=== PATIENT | male | born 1935 | race Caucasian/White ===

== ENCOUNTER 2016-08-30 21:30 | Inpatient (IN) | payer MEDICARE, OTHER ==
--- NOTE | ~2016-08-30 | DS ---
Discharge Summary [address] [place]. [address] NAME: RANJITH KING : 35 STATUS : DIS IN PAT#: [id number] AGE: 81 ADM/REG DATE : 08/30/16 MR#: [id number] REPORT SERV DATE: 09/07/16 DICTATED BY: DATE: REPORT STATUS : Draft TRANSCRIBED BY: MODL DATE: 09/06/16 ADMISSION DATE: 08/30/2016 DISCHARGE DATE: 09/06/2016 DISCHARGE DIAGNOSES: 1. 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 2. Atrial fibrillation. 3. Left femoral vein clot. 4. Chronic obstructive pulmonary disease. 5. Questionable pneumonia. DISCHARGE MEDICATIONS: Include Eliquis 10 mg p.o. b.i.d. until 09/09/2016 and Eliquis 5 mg p.o. b.i.d., amiodarone 400 mg p.o. b.i.d. until 09/08/2016, then amiodarone 200 mg p.o. b.i.d., Colace 100 mg p.o. b.i.d., Protonix 40 mg p.o. daily, Florastor one capsule p.o. b.i.d., Brovana 15 mcg inhalation b.i.d., budesonide inhalation b.i.d., DuoNeb q.4 hours while awake, Tylenol 650 mg p.o. q.4 hours p.r.n. for temperature greater than 101, Dulcolax suppository 10 mg p.o. daily p.r.n. constipation, Plains 10/325 mg tablet one tablet q.4 hours p.r.n. for pain, Zofran 4-8 mg IV q.4 hours p.r.n. for nausea, MiraLAX one packet p.o. daily p.r.n. for constipation, Tenormin 25 mg p.o. at bedtime, DuoNeb inhalation q.4 hours p.r.n. for shortness of breath or wheezing. CONSULTING PHYSICIAN: Include Dr. Merari Valle with Oncology. For full H and P, please refer to Dr. John Mclean's dictation on 08/30/2016. Please also see interim discharge summaries on 09/01/[address] Jerad Lyon as well as 09/03/[address] Joseluis Goodrich. HOSPITAL COURSE/PROBLEM LIST: 1. 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 The patient will be discharged today to the [facility] under the care of [facility] for symptom control. 2. Atrial fibrillation. The patient is on amiodarone 400 mg p.o. b.i.d., will be switched to 200 mg p.o. b.i.d. as mentioned above if his heart rate is 90s to 110s. I will add the patient's Tenormin back from his home regimen. This was held due to hypotension early in his hospital admission; however, this is resolved now. It is unclear whether this was due to infection versus medication-induced hypotension. The patient received morphine in the emergency department, which caused some hypotension. Now, his blood pressure is 120s to 140s systolic and he has not had a hypotensive episode since admission. 3. Left femoral vein clot. This was diagnosed on ultrasound on 08/31/2016, and the patient was placed on Eliquis and we will continue these post discharge. 4. COPD. I will continue the patient's long-acting beta agonists as well as DuoNeb and budesonide, but he is currently not short of breath with an O2 saturation of 98% on 2 L nasal cannula. I discontinued the O2. 5. Questionable pneumonia. The patient received a six-day course of IV Zosyn due to an elevated procalcitonin level and a possible vague infiltrate in the left base on a Discharge Summary [address] [address] NAME: RANJITH KING : 35 STATUS : DIS IN PAT#: [id number] AGE: 81 ADM/REG DATE : 08/30/16 MR#: [id number] REPORT SERV DATE: 09/07/16 DICTATED BY: DATE: REPORT STATUS : Draft TRANSCRIBED BY: MODWen DATE: 09/06/16 chest x-ray. I discontinued the Zosyn yesterday. The patient has not developed fevers, worsening shortness of breath, or any other symptoms of infection. 6. Anemia. The patient's last hemoglobin and hematocrit were 7.9 and 24.1, stable. The patient is DNR and again is being discharged to [facility] under [facility]. This discharge took greater than 30 minutes due to the patient education and medication reconciliation. DICTATED BY: KIANNA Mcdowell/KAMAR Smooth Ye NP / [id number] CC: MD BELKYS Reyes [facility].
--- NOTE | ~2016-08-30 | HP ---
History And Physical [address] [place]. [address] NAME: RANJITH KING : 35 STATUS : ADM IN [facility]#: [id number] AGE: 81 ADM/REG DATE : 08/30/16 MR#: [id number] REPORT SERV DATE: 08/31/16 DICTATED BY: MEKA MCLEAN DATE: 08/30/16 REPORT STATUS : Draft TRANSCRIBED BY: MODL DATE: 08/30/16 DATE OF ADMISSION: 08/30/2016 TIME: 2231 hours, referred from [place]. HISTORY OF PRESENT ILLNESS: The patient is an 81-year-old white male who for the past year has been undergoing treatment for what the family tells me small-cell carcinoma. He has had cranial radiation and chemotherapy. He started new form of chemotherapy this past week or so. Today, he began to have a cough and has felt some pain, sharp in his left lower rib cage. He went to the emergency room because of this pain and in the process of working it up, they did a CAT scan, which revealed a known metastasis. The patient was given morphine in the emergency room in [place]. The told me he was given three doses and became hypotensive and bradycardic. According to ER physician whom I talked with, he gave him some fluids, blood pressure gradually came up. The patient remains awake and responsive. He did start him on antibiotics, Zosyn and Rocephin. Unsure if blood cultures were done. CT scan was done, which revealed the mass in the abdomen. According to the family, he has had cranial radiation as of last year and the last rounds of chemotherapy. He has gotten quite debilitated. ALLERGIES: NO KNOWN ALLERGIES. HOME MEDICATIONS: Include lisinopril 5 mg 1 tablet twice a day, Lasix 40 mg one half tablet daily, atenolol 50 one half tablet daily, simvastatin 80 mg one half at night, Protonix 40 mg tablet daily, albuterol in the nebulizer every 4 hours. He uses hydrocodone at home occasionally for pain, mainly Tylenol. REVIEW OF SYSTEMS: As noted above. Has had a previous stroke and has had an AL requiring stents in the past. He is also status post cholecystectomy. Has had polyps removed and gallbladder removed. He sees Dr. Whitney Garcia, an oncologist, in [place]. Also has COPD and some obstructive sleep apnea. PHYSICAL EXAMINATION: VITAL SIGNS: Currently, blood pressure 109/70, pulse 65, afebrile. GENERAL: Awake, alert, and responsive, slight slurred speech. HEENT: Head is normocephalic. Sclerae and conjunctivae are clear. NECK: Supple. Good upstroke. No bruits. CHEST: Decreased breath sounds. The ribs are tender in the left lower side. ABDOMEN: Slightly distended, non-tympanic, decreased bowel sounds. EXTREMITIES: No clubbing, cyanosis, or edema. Pulses are palpable. NEUROLOGIC: Grossly intact. LABORATORY DATA: Reports from the emergency room laboratory show a lactic acid of 4.8 and their normals are 1.0 to 1.77, troponin 0, 0, 0, BNP 307, coagulation D-Dimer 3920, normal 0 to 400; urine color pending, urine appearance pending, UA is pending. Arterial blood gas showed pH of 7.322, pCO2 of 73.9, pCO2 is 31.9, bicarbonate 22. Sodium 136, potassium 4.4, History And Physical [address] [address] NAME: RANJITH KING : 35 STATUS : ADM IN [facility]#: [id number] AGE: 81 ADM/REG DATE : 08/30/16 MR#: [id number] REPORT SERV DATE: 08/31/16 DICTATED BY: MEKA MCLEAN DATE: 08/30/16 REPORT STATUS : Draft TRANSCRIBED BY: MODL DATE: 08/30/16 chloride 101, CO2 of 22, anion gap 17.4, BUN 24, creatinine 1.6, clearance is 44.3, glucose 128, calcium is 8.7, bilirubin 3.2, ALT 30, AST 23, alkaline phosphatase 108, total protein 8.4, albumin 3.5, phosphatase 108, total protein 3.4 g. CBC showed an H and H of 10.7 and 33.2, white count 11,700, platelet count of 340,000. CT scan as described, lung nodule and liver nodule. IMPRESSION: 1. Metastatic disease, possibly small cell with metastases to liver. 2. Tenderness over the lower rib cage, suspect occult fracture. 3. History of cardiac disease. 4. History of polyps, cholecystectomy and history of coronary stenting in the past. No known allergies. Medications as listed. PLAN: Control pain. Attempt to get records from Dr. Garcia. Discussed with family. We will continue some of the home medications. ARNALDO/KAMAR Meka Mclean M.D. / [id number] CC: Ary Ramirez
--- NOTE | ~2016-08-30 | IDS ---
Interim Discharge Summary [facility] [address] [place]. [address] NAME: RANJITH KING : 35 STATUS : ADM IN PAT#: [id number] AGE: 81 ADM/REG DATE : 08/30/16 MR#: [id number] REPORT SERV DATE: 09/01/16 DICTATED BY: SERAFIN LYON DATE: 09/01/16 REPORT STATUS : Draft TRANSCRIBED BY: MODL DATE: 09/01/16 ADMISSION DATE: 08/30/2016 DISCHARGE DATE: DATE OF INTERIM SUMMARY: 09/01/2016. INTERIM DIAGNOSES: 1. Hypotension. 2. Lactic acidosis. 3. Acute renal failure. 4. Femoral deep venous thrombosis. 5. Metastatic small cell lung cancer. ICU COURSE: Please see dictated H and P for full patient presentation and history. BRIEF SUMMARY: The patient is an 81-year-old gentleman with past medical history of metastatic small cell carcinoma, status post chemo and radiation therapy followed by Dr. Garcia of [facility], who was admitted to the hospital two days ago with hypotension, lactic acidosis, and acute renal failure. He is admitted to the ICU at that time, and started on vasopressors, he remains in the ICU when improving in renal failure and lactic acidosis, but still with a shock and on Levophed. 1. Hypotension unclear etiology at this time. He definitely appears to be volume depleted from poor p.o. intake. There is also a question of potential sepsis with elevated procalcitonin, but thus far, we have been unable to elicit a clear source. He remains on empiric Zosyn at this time, but so far, cultures have been negative. I am checking a random cortisol level today and we will add steroids if indicated. Otherwise, we will continue to wean his Levophed as tolerated and give more gentle IV fluids today. 2. Lactic acidosis. Lactic acid initially was elevated at 3, secondary to his shock on admission that has trended down now to 1.9. We will continue to trend this daily, continue hydrating, and continue pressors. 3. Acute renal failure. His creatinine continues to improve as well as we will hydrate him. Likely, he is prerenal as urine sodium of less than 5. We will continue to monitor his creatinine and urine output daily. 4. Femoral DVT. The patient is also found to have a femoral DVT on admission. Currently, he is on IV heparin per Heme/Onc's recommendations. If his creatinine normalizes then they would likely transition him over to Eliquis at that time. 5. Metastatic small cell cancer of the lung. Hematology and Oncology have been following the patient here. They recommend that he probably has been having progression of his disease as poor prognosis. They have had discussions with his , who currently wants him to be a limited do not resuscitate. If he does not have a significant improvement in the next couple of days, then likely they will transition over to comfort care. The oncoming road supervisor of engines will take over starting tomorrow. Please call if you have any questions. Interim Discharge Summary [address] [place]. [address] NAME: RANJITH KING : 35 STATUS : ADM IN [facility]#: [id number] AGE: 81 ADM/REG DATE : 08/30/16 MR#: [id number] REPORT SERV DATE: 09/01/16 DICTATED BY: SERAFIN LYON DATE: 09/01/16 REPORT STATUS : Draft TRANSCRIBED BY: KAMAR DATE: 09/01/16 DENIS/KAMAR Serafin Lyon MD / [id number] CC: Ary Ramirez [facility].
--- NOTE | ~2016-08-30 | IDS ---
Interim Discharge Summary [facility] [address] [place]. [address] NAME: RANJITH KING : 35 STATUS : ADM IN [facility]#: [id number] AGE: 81 ADM/REG DATE : 08/30/16 MR#: [id number] REPORT SERV DATE: 09/03/16 DICTATED BY: SHARDA GOODRICH IV DATE: 09/03/16 REPORT STATUS : Draft TRANSCRIBED BY: KAMAR DATE: 09/03/16 ADMISSION DATE: 08/30/2016 DISCHARGE DATE: Date of transfer to the floor is 09/03/2016. ADMITTING DIAGNOSES: 1. Hypotension, resolved. 2. Stage IV small cell carcinoma of the lung, now DNR. 3. Atrial fibrillation with rapid ventricular response, reversed on IV amiodarone and continuing oral amiodarone. 4. Left femoral vein clot, on Eliquis. 5. Anemia, status post one unit transfusion of blood. 6. Questionable pneumonia on Zosyn because of an elevated procalcitonin level and some vague infiltrate at the left base. Chest x-ray pending with a repeat procalcitonin level tomorrow. 7. Chronic obstructive pulmonary disease, on bronchodilator medications. 8. Hypertension with medications on hold. 9. Electrolyte abnormalities, being corrected. 10.Coronary artery disease, not active. CONSULTANTS: None. PROCEDURES: The patient underwent ultrasound of the lower extremities demonstrating a clot in the left femoral vein. The patient had an echocardiogram obtained demonstrating normal left ventricular ejection fraction. CURRENT MEDICATIONS: The patient is on Eliquis 10 mg twice a day, Colace 100 mg twice a day, Cordarone 4 mg twice a day, DuoNebs every four hours while awake and q.4 hours as needed, unit dose of Brovana twice a day, Pulmicort 1 mg twice a day, Proventil as needed, folic acid 1 mg daily, multivitamin daily, Zocor 40 mg at bedtime, Zosyn 3.375 g q.8 hours, and Florastor 1 twice a day. HOSPITAL COURSE: The patient was admitted on 08/30/2016 after presenting with chest pain. The patient had vague infiltrate and was hypotensive initially and responded to fluid resuscitation. The patient had an elevated procalcitonin level and is empirically placed on Zosyn for presumed pneumonia. Subsequent evaluation demonstrated clot in his left lower extremity for which he was placed on heparin. The patient had atrial fibrillation with rapid ventricular response for which He was placed on amiodarone drip. This was transitioned to oral amiodarone, which will be continued because of his risk for recurrence and is on 400 mg twice a day for a week and then 200 mg twice a day. The patient was transitioned from heparin drip to Eliquis. He had electrolyte abnormalities with predominantly low phos and potassium which are being corrected. He had his antihypertensives held though can be re-initiated. He remained on bronchodilator medications for his COPD. He is on supplemental oxygen. We discussed his clinical status, and he agreed to a DNR, which was implemented. The patient will be transferred to the Interim Discharge Summary [address] [place]. [address] NAME: RANJITH KING : 35 STATUS : ADM IN PAT#: [id number] AGE: 81 ADM/REG DATE : 08/30/16 MR#: [id number] REPORT SERV DATE: 09/03/16 DICTATED BY: SHARDA GOODRICH IV DATE: 09/03/16 REPORT STATUS : Draft TRANSCRIBED BY: KAMAR DATE: 09/03/16 floor. I will ask Hospital Service to assume primary care. CAMILA/KAMAR Sharda Goodrich IV, M.D. / [id number] CC: Ary Ramirez [facility].
[2016-08-30] MEDS ORDERED: *UNABLE2 (22:51)
[2016-08-31] MEDS ORDERED: PRIN5 PO ×3 (00:31→11:07)
[2016-08-31] MEDS ORDERED: L40 PO (00:33)
[2016-08-31] MEDS ORDERED: ATEN50 PO (00:35)
[2016-08-31] MEDS ORDERED: ZOCOR80 MG PO (00:36)
[2016-08-31] MEDS ORDERED: PROTONIX PO ×2 (00:41→11:07)
[2016-08-31 00:49] LABS: HEMATOCRIT 26.7 % (40.0-51.0); HEMOGLOBIN 8.8 g/dL (13.6-17.8); MEAN CORPUSCULAR VOLUME 103.1 fL (80-100); MEAN PLATELET VOLUME 8.1 fL (9.2-13.0); PLATELET COUNT 183 10/3/uL (150-400); RBC DISTRIBUTION WIDTH 19.3 % (12.0-16.0); RED CELL COUNT 2.59 10/6/uL (4.7-6.1); WHITE BLOOD CELLS 9.2 10/3/uL (4.5-10.5)
[2016-08-31] MEDS ORDERED: ALBUTEROL0.083 % INH (00:53)
[2016-08-31 00:54] LABS: MANUAL DIFF YES %
[2016-08-31 01:10] LABS: D-DIMER QUANTITATIVE 4.65 ug/mLFEU (< 0.50)
[2016-08-31 01:12] LABS: A/G RATIO 0.7 (0.7-1.9); ALBUMIN 2.9 G/DL (3.5-5.0); ALKALINE PHOSPHATASE 91 U/L (45-117); BUN (BLOOD UREA NITROGEN) 27 MG/DL (6-23); CALCIUM, SERUM 7.8 MG/DL (8.5-10.4); CHLORIDE, SERUM 108 MMOL/L (96-112); CO2 (CARBON DIOXIDE) 22 MMOL/L (24-34); CREATININE 1.94 MG/DL (0.70-1.30); FREE T4 1.47 NG/DL (0.76-1.46); GFR AFRICAN AMERICAN 37 ML/MIN (>=60); GFR NON AFRICAN AMERICAN 32 ML/MIN (>=60); GLOBULIN 4.2 G/DL (2.5-4.1); GLUCOSE, SERUM 117 MG/DL (60-99); SGOT(AST) 21 U/L (5-40); SGPT(ALT) 20 U/L (5-65); SODIUM, SERUM 140 MMOL/L (135-148); TOTAL BILIRUBIN 2.8 MG/DL (0-1.2); TOTAL PROTEIN 7.1 G/DL (6.0-8.5)
[2016-08-31 01:25] LABS: ALLENS TEST Pos; BE (BASE EXCESS) -5.4 MEQ/L (0 +/- 2.5); CARBOXYHEMOGLOBIN 1.3 % (0-3); DEVICE NC; HCO3 (ACTUAL BICARBONATE) 17.5 MEQ/L (23-27); INSTRUMENT SERIAL # 8083; METHEMOGLOBIN 0.2 % (0-3); O2 CONTENT 13.9 VOL% (18-24); PCO2 (CO2 TENSION) 26 MMHG (35-45); PO2 (O2 TENSION) 120 MMHG (79-93); SAMPLE Arterial; pH 7.45 (7.37-7.43)
[2016-08-31 02:13] LABS: ANISOCYTOSIS 1+ (5-10/OIF) (0-5/OIF); BAND NEUTROPHILS 2 %; IMMATURE GRANS ABSOLUTE (CALC) 0.18 10/3/uL (0.0-0.11); LYMPHOCYTES 8 %; LYMPHOCYTES ABSOLUTE (CALC) 0.74 10/3/uL (0.67-4.30); MACROCYTES 1+ (5-10/OIF) (0-5/OIF); METAMYELOCYTES 2 %; MONOCYTES 4 %; MONOCYTES ABSOLUTE (CALC) 0.37 10/3/uL (0.21-1.20); NEUTROPHILS ABSOLUTE (CALC) 7.91 10/3/uL (2.02-8.40); SEGMENTED NEUTROPHIL (0) 84 %; TOTAL NUCLEATED CELLS 100
[2016-08-31 02:14] LABS: PLATELET ESTIMATE ADQ (ADEQUATE); RBC MORPHOLOGY ABN (NORMAL)
[2016-08-31 02:24] LABS: PROCALCITONIN 1.55 ng/mL (<0.5)
[2016-08-31] MEDS ORDERED: L20 PO (11:06)
[2016-08-31] MEDS ORDERED: DUONEB INH (11:06)
[2016-08-31] MEDS ORDERED: ATEN25 PO (11:06)
[2016-08-31] MEDS ORDERED: ZOCOR40 PO (11:07)
[2016-08-31] MEDS ORDERED: CHEMOTHERAPY IV (11:08)
[2016-08-31] MEDS ORDERED: CENTRUM PO (11:08)
[2016-08-31] MEDS ORDERED: OTC STOOL SOFTENER PO (11:08)
[2016-08-31 11:58] LABS: ASCORBIC ACID (UR NOT ORDER) NEG (NEG); BILIRUBIN, URINE NEGATIVE (NEG); KETONE, URINE NEGATIVE (NEG); LEUKOCYTE ESTERASE(NOT OR TRACE (NEG); WBC (NOT ORDERED) (RFLEX) 99 (0-5)
[2016-08-31 13:34] LABS: SODIUM, URINE < 5 MEQ/L; UREA NITROGEN (RANDOM UR) 644 MG/DL
[2016-08-31 19:40] LABS: INTERNATIONAL NORMAL RATI 1.5 UNITS (-); PARTIAL THROMBO TIME 42.8 SEC (22.5-37.2); PROTIME (NOT ORD) 18.4 SEC (12.0-14.5)
[2016-09-01 01:52] LABS: HEMOGLOBIN 7.3 g/dL (13.6-17.8); MEAN CORPUS HGB CONC 33.6 g/dL (32.0-36.0); MEAN CORPUSCULAR HEMOGLOB 34.1 pg (26.0-34.0); MEAN CORPUSCULAR VOLUME 101.4 fL (80-100); MEAN PLATELET VOLUME 7.8 fL (9.2-13.0); PLATELET COUNT 193 10/3/uL (150-400); RBC DISTRIBUTION WIDTH 18.6 % (12.0-16.0); RED CELL COUNT 2.14 10/6/uL (4.7-6.1); WHITE BLOOD CELLS 8.8 10/3/uL (4.5-10.5)
[2016-09-01 01:53] LABS: HEMATOCRIT 21.7 % (40.0-51.0); MANUAL DIFF YES %
[2016-09-01 02:13] LABS: A/G RATIO 0.6 (0.7-1.9); ALBUMIN 2.4 G/DL (3.5-5.0); ALKALINE PHOSPHATASE 81 U/L (45-117); CALCIUM, SERUM 7.8 MG/DL (8.5-10.4); CHLORIDE, SERUM 108 MMOL/L (96-112); CO2 (CARBON DIOXIDE) 24 MMOL/L (24-34); SGOT(AST) 20 U/L (5-40); SGPT(ALT) 19 U/L (5-65); SODIUM, SERUM 140 MMOL/L (135-148); TOTAL PROTEIN 6.4 G/DL (6.0-8.5)
[2016-09-01 02:16] LABS: BUN (BLOOD UREA NITROGEN) 22 MG/DL (6-23); CREATININE 1.35 MG/DL (0.70-1.30); GFR AFRICAN AMERICAN 57 ML/MIN (>=60); GFR NON AFRICAN AMERICAN 49 ML/MIN (>=60); GLUCOSE, SERUM 152 MG/DL (60-99); POTASSIUM, SERUM 3.7 MMOL/L (3.5-5.3); TOTAL BILIRUBIN 1.9 MG/DL (0-1.2)
[2016-09-01 02:49] LABS: ANISOCYTOSIS 1+ (5-10/OIF) (0-5/OIF); LYMPHOCYTES 6 %; LYMPHOCYTES ABSOLUTE (CALC) 0.53 10/3/uL (0.67-4.30); MACROCYTES 1+ (5-10/OIF) (0-5/OIF); MONOCYTES 6 %; MONOCYTES ABSOLUTE (CALC) 0.53 10/3/uL (0.21-1.20); NEUTROPHILS ABSOLUTE (CALC) 7.74 10/3/uL (2.02-8.40); PLATELET ESTIMATE ADQ (ADEQUATE); SEGMENTED NEUTROPHIL (0) 88 %; TOTAL NUCLEATED CELLS 100
[2016-09-01 12:45] LABS: BASOPHILS 0.2 %; BASOPHILS ABSOLUTE 0.01 10/3/uL (0.0-0.16); EOSINOPHILS 0.7 %; EOSINOPHILS ABSOLUTE 0.04 10/3/uL (0.0-0.53); HEMATOCRIT 23.2 % (40.0-51.0); HEMOGLOBIN 7.6 g/dL (13.6-17.8); IMMATURE GRANULOCYTES 0.2 %; IMMATURE GRANULOCYTES ABSOLUTE 0.01 10/3/uL (0.0-0.11); LYMPHOCYTES 10.4 %; LYMPHOCYTES ABSOLUTE 0.61 10/3/uL (0.67-4.30); MEAN CORPUS HGB CONC 32.8 g/dL (32.0-36.0); MEAN CORPUSCULAR HEMOGLOB 33.2 pg (26.0-34.0); MEAN CORPUSCULAR VOLUME 101.3 fL (80-100); MEAN PLATELET VOLUME 8.1 fL (9.2-13.0); MONOCYTES 8.2 %; MONOCYTES ABSOLUTE 0.48 10/3/uL (0.21-1.20); NEUTROPHILS 80.3 %; NEUTROPHILS ABSOLUTE 4.73 10/3/uL (2.02-8.40); PLATELET COUNT 181 10/3/uL (150-400); RBC DISTRIBUTION WIDTH 18.6 % (12.0-16.0); RED CELL COUNT 2.29 10/6/uL (4.7-6.1); WHITE BLOOD CELLS 5.9 10/3/uL (4.5-10.5)
[2016-09-01 12:46] LABS: MANUAL DIFF NO %
[2016-09-01 13:08] LABS: CALCIUM, SERUM 7.5 MG/DL (8.5-10.4); CHLORIDE, SERUM 108 MMOL/L (96-112); CO2 (CARBON DIOXIDE) 22 MMOL/L (24-34); CREATININE 0.92 MG/DL (0.70-1.30); GFR AFRICAN AMERICAN 90 ML/MIN (>=60); GFR NON AFRICAN AMERICAN 78 ML/MIN (>=60); GLUCOSE, SERUM 131 MG/DL (60-99); POTASSIUM, SERUM 3.6 MMOL/L (3.5-5.3); SODIUM, SERUM 140 MMOL/L (135-148)
[2016-09-01 13:09] LABS: BUN (BLOOD UREA NITROGEN) 16 MG/DL (6-23)
[2016-09-02 04:37] LABS: BASOPHILS 0 %; EOSINOPHILS 2.3 %; EOSINOPHILS ABSOLUTE 0.08 10/3/uL (0.0-0.53); HEMATOCRIT 21.2 % (40.0-51.0); LYMPHOCYTES 10.8 %; LYMPHOCYTES ABSOLUTE 0.37 10/3/uL (0.67-4.30); MEAN CORPUS HGB CONC 32.5 g/dL (32.0-36.0); MEAN CORPUSCULAR HEMOGLOB 32.9 pg (26.0-34.0); MEAN PLATELET VOLUME 7.8 fL (9.2-13.0); MONOCYTES 7.6 %; MONOCYTES ABSOLUTE 0.26 10/3/uL (0.21-1.20); NEUTROPHILS 79.3 %; NEUTROPHILS ABSOLUTE 2.73 10/3/uL (2.02-8.40); PLATELET COUNT 161 10/3/uL (150-400); RBC DISTRIBUTION WIDTH 18.5 % (12.0-16.0)
[2016-09-02 04:53] LABS: BUN (BLOOD UREA NITROGEN) 9 MG/DL (6-23); CALCIUM, SERUM 7.4 MG/DL (8.5-10.4); CHLORIDE, SERUM 107 MMOL/L (96-112); CO2 (CARBON DIOXIDE) 25 MMOL/L (24-34); CREATININE 0.99 MG/DL (0.70-1.30); GFR AFRICAN AMERICAN 82 ML/MIN (>=60); GFR NON AFRICAN AMERICAN 71 ML/MIN (>=60); GLUCOSE, SERUM 120 MG/DL (60-99); PHOSPHORUS, SERUM 1.8 MG/DL (2.5-4.5); POTASSIUM, SERUM 3.9 MMOL/L (3.5-5.3); SODIUM, SERUM 138 MMOL/L (135-148)
[2016-09-02 05:05] LABS: HEMOGLOBIN 6.9 g/dL (13.6-17.8); WHITE BLOOD CELLS 3.4 10/3/uL (4.5-10.5)
[2016-09-02 05:06] LABS: MANUAL DIFF NO %
[2016-09-02 14:07] LABS: HEMOGLOBIN 7.9 g/dL (13.6-17.8)
[2016-09-02 14:08] LABS: HEMATOCRIT 23.8 % (40.0-51.0)
[2016-09-02 14:27] LABS: BUN (BLOOD UREA NITROGEN) 7 MG/DL (6-23); CALCIUM, SERUM 7.6 MG/DL (8.5-10.4); CHLORIDE, SERUM 109 MMOL/L (96-112); CO2 (CARBON DIOXIDE) 23 MMOL/L (24-34); CREATININE 0.85 MG/DL (0.70-1.30); GFR AFRICAN AMERICAN 95 ML/MIN (>=60); GFR NON AFRICAN AMERICAN 82 ML/MIN (>=60); GLUCOSE, SERUM 125 MG/DL (60-99); SODIUM, SERUM 141 MMOL/L (135-148)
[2016-09-03 04:37] LABS: HEMATOCRIT 24.1 % (40.0-51.0); HEMOGLOBIN 8.1 g/dL (13.6-17.8); MEAN CORPUS HGB CONC 33.6 g/dL (32.0-36.0); MEAN CORPUSCULAR HEMOGLOB 32.7 pg (26.0-34.0); MEAN PLATELET VOLUME 8.1 fL (9.2-13.0); PLATELET COUNT 176 10/3/uL (150-400); RBC DISTRIBUTION WIDTH 20.9 % (12.0-16.0); RED CELL COUNT 2.48 10/6/uL (4.7-6.1); WHITE BLOOD CELLS 3.3 10/3/uL (4.5-10.5)
[2016-09-03 04:38] LABS: MANUAL DIFF YES %; MEAN CORPUSCULAR VOLUME 97.2 fL (80-100)
[2016-09-03 04:47] LABS: BUN (BLOOD UREA NITROGEN) 6 MG/DL (6-23); CALCIUM, SERUM 7.2 MG/DL (8.5-10.4); CHLORIDE, SERUM 111 MMOL/L (96-112); CO2 (CARBON DIOXIDE) 22 MMOL/L (24-34); CREATININE 0.94 MG/DL (0.70-1.30); GFR AFRICAN AMERICAN 88 ML/MIN (>=60); GFR NON AFRICAN AMERICAN 76 ML/MIN (>=60); GLUCOSE, SERUM 122 MG/DL (60-99); POTASSIUM, SERUM 3.3 MMOL/L (3.5-5.3); SODIUM, SERUM 140 MMOL/L (135-148)
[2016-09-03 05:03] LABS: ANISOCYTOSIS 1+ (5-10/OIF) (0-5/OIF); BAND NEUTROPHILS 1 %; EOSINOPHILS 1 %; EOSINOPHILS ABSOLUTE (CALC) 0.03 10/3/uL (0.0-0.53); LYMPHOCYTES 13 %; LYMPHOCYTES ABSOLUTE (CALC) 0.43 10/3/uL (0.67-4.30); MONOCYTES 5 %; MONOCYTES ABSOLUTE (CALC) 0.17 10/3/uL (0.21-1.20); NEUTROPHILS ABSOLUTE (CALC) 2.67 10/3/uL (2.02-8.40); PLATELET ESTIMATE ADQ (ADEQUATE); SEGMENTED NEUTROPHIL (0) 80 %; TOTAL NUCLEATED CELLS 100
[2016-09-04 05:14] LABS: BASOPHILS 0 %; EOSINOPHILS 1.9 %; EOSINOPHILS ABSOLUTE 0.06 10/3/uL (0.0-0.53); HEMATOCRIT 24.1 % (40.0-51.0); HEMOGLOBIN 7.9 g/dL (13.6-17.8); IMMATURE GRANULOCYTES 2.3 %; IMMATURE GRANULOCYTES ABSOLUTE 0.07 10/3/uL (0.0-0.11); LYMPHOCYTES 9.1 %; LYMPHOCYTES ABSOLUTE 0.28 10/3/uL (0.67-4.30); MEAN CORPUS HGB CONC 32.8 g/dL (32.0-36.0); MEAN CORPUSCULAR HEMOGLOB 32.1 pg (26.0-34.0); MEAN PLATELET VOLUME 7.6 fL (9.2-13.0); MONOCYTES 7.5 %; MONOCYTES ABSOLUTE 0.23 10/3/uL (0.21-1.20); NEUTROPHILS 79.2 %; NEUTROPHILS ABSOLUTE 2.44 10/3/uL (2.02-8.40); PLATELET COUNT 179 10/3/uL (150-400); RBC DISTRIBUTION WIDTH 20.8 % (12.0-16.0); RED CELL COUNT 2.46 10/6/uL (4.7-6.1); WHITE BLOOD CELLS 3.1 10/3/uL (4.5-10.5)
[2016-09-04 05:17] LABS: MANUAL DIFF NO %
[2016-09-04 05:20] LABS: INTERNATIONAL NORMAL RATI 2.5 UNITS (-); PARTIAL THROMBO TIME 50.8 SEC (22.5-37.2)
[2016-09-04 05:46] LABS: A/G RATIO 0.6 (0.7-1.9); ALBUMIN 2.2 G/DL (3.5-5.0); BUN (BLOOD UREA NITROGEN) 6 MG/DL (6-23); CALCIUM, SERUM 7.2 MG/DL (8.5-10.4); CHLORIDE, SERUM 115 MMOL/L (96-112); CO2 (CARBON DIOXIDE) 20 MMOL/L (24-34); GFR AFRICAN AMERICAN 93 ML/MIN (>=60); GFR NON AFRICAN AMERICAN 80 ML/MIN (>=60); GLOBULIN 3.5 G/DL (2.5-4.1); PHOSPHORUS, SERUM 1.8 MG/DL (2.5-4.5); SGOT(AST) 37 U/L (5-40); SGPT(ALT) 41 U/L (5-65); SODIUM, SERUM 142 MMOL/L (135-148); TOTAL PROTEIN 5.7 G/DL (6.0-8.5)
[2016-09-04 05:47] LABS: ALKALINE PHOSPHATASE 97 U/L (45-117); GLUCOSE, SERUM 91 MG/DL (60-99); TOTAL BILIRUBIN 1.3 MG/DL (0-1.2)
[2016-09-04 06:37] LABS: PROCALCITONIN 0.35 ng/mL (<0.5)
== END 2016-09-06 12:41 | DRG 436 ==
LOC: MIC 21:30 → 4EA 09-03 16:39
PROVIDERS: Internal Medicine; Internal Medicine Critical Care Medicine; Internal Medicine Hematology & Oncology
PROC: 30233N0 Transfusion of Autologous Red Blood Cells into Peripheral Vein, Percutaneous Approach (ICD-10-PCS; principal; 2016-09-02)
DX: C78.7 Secondary malignant neoplasm of liver and intrahepatic bile duct (principal); N17.9 Acute kidney failure, unspecified; I82.412 Acute embolism and thrombosis of left femoral vein; C80.1 Malignant (primary) neoplasm, unspecified; J44.9 Chronic obstructive pulmonary disease, unspecified; C34.90 Malignant neoplasm of unspecified part of unspecified bronchus or lung; I10 Essential (primary) hypertension; G47.33 Obstructive sleep apnea (adult) (pediatric); Z79.899 Other long term (current) drug therapy; Z86.73 Personal history of transient ischemic attack (TIA), and cerebral infarction without residual deficits; I25.2 Old myocardial infarction; Z90.49 Acquired absence of other specified parts of digestive tract; Z98.890 Other specified postprocedural states; Z86.010 Personal history of colon polyps
CPT/HCPCS: 36415; 36569; 36600; 71010; 80048; 80053; 80069; 81001; 82533; 82570; 82805; 83036; 83605; 83735; 83880; 84100; 84145; 84300; 84439; 84443; 84540; 85014; 85018; 85025; 85379; 85610; 85730; 86850; 86900; 86901; 86920; 87040; 87086; 87449; 87641; 89190; 93005; 93306; 93970; 94640; A9270-GY; C1751; J0282; J2543; J3010; P9016